=== PATIENT | female | born 1950 | race Caucasian/White ===

== ENCOUNTER 2017-12-17 16:33 | Emergency (ER) | payer OTHER ==
[2017-12-17 16:57] VITALS: BP 135/87; PULSE 72; TEMP 98.6; BMI 20.9
--- NOTE | 2017-12-17 17:12 | PDOC ---
History of Present Illness <Kia Briggs - Last Filed: 12/17/17 17:11> - General History Source: Patient Exam Limitations: No Limitations - History of Present Illness Initial Comments: 12/17/17 18:17 The patient is a 67 year old female with a significant PMH of hypothyroidism who presents to the emergency department with bilateral flank pain that began approximately 1 week ago. The patient states the bilateral flank pain radiates to the inguinal canals. The patient describes the flank pain as slow onset, 10/ 10 pain, stabbing, and intermittent worsened with movement. The patient saw Urgent Care today who reported mild leukocytes on UA and was told to seek further evaluation at the ER. The patient states she has been taking Tylenol and Motrin for the pain over the past week but has not taken anything today. The patient also notes fever, chills and bloating secondary to the flank pain. The patient reports decreased appetite but no urinary complaints. The patient also notes that she has not had a bowel movement for the past three days and states this is not normal for her. The patient denies chest pain, shortness of breath, headache and dizziness. Denies nausea, vomit, and diarrhea. Denies dysuria, frequency, urgency and hematuria. Allergies: NKA Past surgical history: None reported. Social history: No reported alcohol, drug, or cigarette use. PCP: Dr. Nathan <Audra West - Last Filed: 12/17/17 18:17> <Gabriella Yun - Last Filed: 12/17/17 20:52> - General Chief Complaint: Pain Stated Complaint: KIDNEY Time Seen by Provider: 12/17/17 17:11 Past History - Past Medical History COPD: No Thyroid Disease: Yes - Suicide/Smoking/Psychosocial Hx Smoking History: Never smoked Have you smoked in the past 12 months: No Information on smoking cessation initiated: No Hx Alcohol Use: No Drug/Substance Use Hx: No Substance Use Type: None <Kia Briggs - Last Filed: 12/17/17 17:11> <Audra West - Last Filed: 12/17/17 18:17> <Gabriella Yun - Last Filed: 12/17/17 20:52> - Past Medical History Allergies/Adverse Reactions: Allergies Allergy/AdvReac Type Severity Reaction Status Date / Time No Known Allergies Allergy Verified 12/17/17 16:35 Home Medications: Ambulatory Orders Levothyroxine Sodium [Synthroid] 50 mcg PO Q48H 12/17/17 Levothyroxine Sodium [Synthroid] 75 mcg PO Q48H 12/17/17 Review of Systems - Review of Systems Able to Perform ROS?: Yes Comments:: 12/17/17 18:19 GENERAL/CONSTITUTIONAL: (+) Fever. (+) Chills. No weakness. HEAD, EYES, EARS, NOSE AND THROAT: No change in vision. No ear pain or discharge. No sore throat. CARDIOVASCULAR: No chest pain or shortness of breath. RESPIRATORY: No cough, wheezing, or hemoptysis. GASTROINTESTINAL: (+) Bloated. (+) Constipated. No nausea, vomiting, or diarrhea. GENITOURINARY: No dysuria, frequency, or change in urination. MUSCULOSKELETAL: No joint or muscle swelling or pain. No neck or back pain. BACK: (+) Bilateral flank pain. SKIN: No rash NEUROLOGIC: No headache, vertigo, loss of consciousness, or change in strength/ sensation. ENDOCRINE: No increased thirst. No abnormal weight change. HEMATOLOGIC/LYMPHATIC: No anemia, easy bleeding, or history of blood clots. ALLERGIC/IMMUNOLOGIC: No hives or skin allergy. <Audra West - Last Filed: 12/17/17 18:17> *Physical Exam - Vital Signs Last Vital Signs Temp Pulse Resp BP Pulse Ox 98.6 F 72 18 135/87 100 12/17/17 16:37 12/17/17 16:37 12/17/17 16:37 12/17/17 16:37 12/17/17 16:37 <Kia Briggs - Last Filed: 12/17/17 17:11> - Vital Signs Last Vital Signs Temp Pulse Resp BP Pulse Ox 98.6 F 72 18 135/87 100 12/17/17 16:37 12/17/17 16:37 12/17/17 16:37 12/17/17 16:37 12/17/17 16:37 - Physical Exam Comments: 12/17/17 18:22 GENERAL: Awake, alert, and fully oriented, in no acute distress HEAD: No signs of trauma EYES: PERRLA, EOMI, sclera anicteric, conjunctiva clear ENT: Auricles normal inspection, hearing grossly normal, nares patent, oropharynx clear without exudates. Moist mucosa NECK: Normal ROM, supple, no lymphadenopathy, JVD, or masses LUNGS: Breath sounds equal, clear to auscultation bilaterally. No wheezes, and no crackles HEART: Regular rate and rhythm, normal S1 and S2, no murmurs, rubs or gallops ABDOMEN: Soft, nontender, normoactive bowel sounds. No guarding, no rebound. No masses EXTREMITIES: Normal range of motion, no edema. No clubbing or cyanosis. No cords, erythema, or tenderness NEUROLOGICAL: Cranial nerves II through XII grossly intact. Normal speech, normal gait SKIN: Warm, Dry, normal turgor, no rashes or lesions noted. <Audra West - Last Filed: 12/17/17 18:17> - Vital Signs Last Vital Signs Temp Pulse Resp BP Pulse Ox 98.6 F 72 18 135/87 99 12/17/17 16:37 12/17/17 16:37 12/17/17 16:37 12/17/17 16:37 12/17/17 17:45 <Gabriella Yun - Last Filed: 12/17/17 20:52> ED Treatment Course - LABORATORY CBC & Chemistry Diagram: 12/17/17 18:06 12/17/17 18:06 - ADDITIONAL ORDERS Additional order review: Laboratory Results 12/17/17 12/17/17 12/17/17 18:40 18:06 18:06 Sodium 138 Potassium 4.5 Chloride 105 Carbon Dioxide 27 Anion Gap 6 L BUN 15 Creatinine 0.9 Creat Clearance w eGFR > 60 Random Glucose 95 Calcium 8.2 L Total Bilirubin 0.4 AST 16 ALT 19 Alkaline Phosphatase 76 Total Protein 7.0 Albumin 3.2 L Urine Color Straw Cancelled Urine Appearance Clear Cancelled Urine pH 6.0 Cancelled Ur Specific [place] 1.006 Cancelled Urine Protein Negative Cancelled Urine Glucose (UA) Negative Cancelled Urine Ketones Negative Cancelled Urine Blood Negative Cancelled Urine Nitrite Negative Cancelled Urine Bilirubin Negative Cancelled Urine Urobilinogen Negative Cancelled Ur Leukocyte Esterase 3+ H Cancelled Urine WBC (Auto) 16 Urine RBC (Auto) 1 Ur Epithelial Cells Rare Urine Bacteria Few 12/17/17 18:06 RBC 3.81 MCV 95.7 MCHC 33.3 RDW 11.9 MPV 8.2 Neutrophils % 69.6 Lymphocytes % 19.6 Monocytes % 8.0 Eosinophils % 2.4 Basophils % 0.4 <Gabriella Yun - Last Filed: 12/17/17 20:52> Medical Decision Making - Medical Decision Making 12/17/17 20:49 Patient Name: KENNEDY WILLSON THIS IS A PRELIMINARY REPORT FROM [facility] DATE OF SERVICE: 2017-12-17 19:37:03 IMAGES: [id number] EXAM: CT abdomen/pelvis with contrast HISTORY: Back pain with fever, rule out pyelonephritis COMPARISON: None. FINDINGS: There is a mildly prominent extrarenal renal pelvis on the right of questionable clinical significance. There are no renal or ureteral calculi seen. There is no abnormal perinephric stranding or abnormal perinephric fluid collection seen. The gallbladder is partially contracted. There are no obvious gallstones. There is a moderately large amount of stool noted in the colon. There is no evidence of intestinal obstruction. The appendix is normal in size. Urinary bladder is mildly distended at this time. There are no bladder calculi. There is lumbar facet arthropathy. Minimal amorphous increased attenuation is noted in the posterior mediastinum anterior to the T11/T12 disc space of undetermined etiology or significance. If clinically indicated, consider evaluation with thoracic spine MRI. THIS DOCUMENT HAS BEEN ELECTRONICALLY SIGNED 12/17/17 20:51 Pt ws given a copy of her CT. SHe has a UTI; she has constipation. She has cipro that was given to her at urgent care and she picked that up at the pharmacy; She will be given a dose of levaquin in the ER. Stable for discharge. <Gabriella Yun - Last Filed: 12/17/17 20:52> *DC/Admit/Observation/Transfer <Kia Briggs - Last Filed: 12/17/17 17:11> - Attestations Scribe Attestion: 12/17/17 18:22 Documentation prepared by Audra West, acting as medical physiologist for Kia Briggs MD. <Audra West - Last Filed: 12/17/17 18:17> - Discharge Dispostion Admit: No <Gabriella Yun - Last Filed: 12/17/17 20:52> Diagnosis at time of Disposition: Constipation, UTI (urinary tract infection) - Discharge Dispostion Disposition: HOME Condition at time of disposition: Stable - Referrals Referrals: Leslee Nathan [Primary Care Provider] - - Patient Instructions Printed Discharge Instructions: Urinary Tract Infection, Constipation - Post Discharge Activity
[2017-12-17 18:29] LABS: BASO % 0.4 % (0-2.0); EOS % 2.4 % (0-4.5); HEMATOCRIT 36.5 % (32.4-45.2); HEMOGLOBIN 12.1 GM/dL (10.7-15.3); LYMPH % 19.6 % (8-40); MCH 31.8 pg (25.7-33.7); MCHC 33.3 g/dl (32.0-36.0); MEAN CELL VOLUME 95.7 fl (80-96); MEAN PLT VOLUME 8.2 fl (7.5-11.1); NEUT % 69.6 % (42.8-82.8); PLATELET COUNT 227 K/MM3 (134-434); RBC 3.81 M/mm3 (3.60-5.2); RDW 11.9 % (11.6-15.6); WHITE BLOOD COUNT 5.3 K/mm3 (4.0-10.0)
[2017-12-17 18:50] LABS: URINE APPEARANCE CLEAR; URINE BILIRUBIN NEGATIVE (NEGATIVE); URINE BLOOD NEGATIVE (NEGATIVE); URINE COLOR STRAW; URINE GLUCOSE (UA) NEGATIVE (NEGATIVE); URINE KETONE NEGATIVE (NEGATIVE); URINE NITRITE NEGATIVE (NEGATIVE); URINE PROTEIN NEGATIVE (NEGATIVE); URINE UROBILINOGEN NEGATIVE mg/dL (0.2-1.0)
[2017-12-17 18:54] LABS: URINE LEUK ESTERASE 3+ (NEGATIVE)
[2017-12-17 18:55] LABS: EPI CELLS RARE /HPF (FEW); URINE BACTERIA FEW /hpf (NONE SEEN)
[2017-12-17 19:10] LABS: ALBUMIN 3.2 g/dl (3.4-5.0); ANION GAP 6 (8-16); BLOOD UREA NITROGEN 15 mg/dL (7-18); CALCIUM 8.2 mg/dL (8.5-10.1); CHLORIDE 105 mmol/L (98-107); CO2 27 mmol/L (21-32); CREATININE 0.9 mg/dL (0.55-1.02); GLUCOSE,RANDOM 95 mg/dL (74-106); POTASSIUM 4.5 mmol/L (3.5-5.1); SGOT/AST 16 U/L (15-37); SGPT/ALT 19 U/L (12-78); SODIUM 138 mmol/L (136-145)
[2017-12-17 19:11] LABS: ALK PHOS 76 U/L (45-117); BILIRUBIN,TOTAL 0.4 mg/dL (0.2-1.0)
[2017-12-17] MEDS ORDERED: LEVOFLOXACIN 500 MG IVPB 500 MG/100 ML BAG IVPB ONE ×2 (20:15→20:22)
[2017-12-17] MEDS ORDERED: POLYETHYLENE GLYCOL 3350 119 GM BTL PO ONE (20:52)
== END 2017-12-17 21:25 | disposition home or self-care (01) ==
LOC: JER 16:33
DX: N39.0 Urinary tract infection, site not specified (principal); K59.00 Constipation, unspecified; E03.9 Hypothyroidism, unspecified
CPT/HCPCS: 36415; 74176-TC; 80053; 81003; 81015; 85025; 87086; 96365; 99284-25

== ENCOUNTER 2021-10-15 17:49 | Emergency (ER) | payer OTHER ==
[2021-10-15 18:15] VITALS: BP 109/74; PULSE 71; TEMP 98.2; BMI 21.7
[2021-10-15] MEDS ORDERED: LACTATED RINGERS SOLUTION 1000 ML INFUS.BAG IV ONE (20:37)
[2021-10-15] MEDS ORDERED: ACETAMINOPHEN 1000 MG/100 ML VIAL IVPB ONE (20:37)
[2021-10-15 20:51] LABS: BASO % 0.4 % (0-2.0); EOS % 1.5 % (0-4.5); HEMATOCRIT 35.6 % (32.4-45.2); HEMOGLOBIN 12.1 GM/dL (10.7-15.3); LYMPH % 17.6 % (8-40); MCH 32.6 pg (25.7-33.7); MONO % 9.6 % (3.8-10.2); NEUT % 70.9 % (42.8-82.8); PLATELET COUNT 180 10^3/uL (134-434); RDW 12.3 % (11.6-15.6)
[2021-10-15 20:55] LABS: EPI CELLS 2 /uL (0-25.1); HYALINE CASTS 0 /uL (0-3.1); URINE APPEARANCE CLEAR; URINE BACTERIA 6 /uL (0-1359); URINE BILIRUBIN NEGATIVE (NEGATIVE); URINE COLOR YELLOW; URINE GLUCOSE (UA) NEGATIVE (NEGATIVE); URINE KETONE NEGATIVE (NEGATIVE); URINE LEUK ESTERASE 1+ (NEGATIVE); URINE NITRITE NEGATIVE (NEGATIVE); URINE PROTEIN NEGATIVE (NEGATIVE); URINE RBC 6 /uL (0-23.9); URINE UROBILINOGEN 0.2 mg/dL (0.2-1.0); URINE WBC 21 /uL (0-25.8)
[2021-10-15] MEDS ORDERED: ACETAMINOPHEN INJECTION 100 ML IVPB ONE (20:55)
[2021-10-15 21:05] LABS: PROTHROMBIN TIME (PATIENT) 11.7 SEC (9.7-13.0)
[2021-10-15 21:07] LABS: ACTIVATED PTT 28.5 SECONDS (25.2-36.5)
[2021-10-15 21:12] LABS: CALCIUM 8.4 mg/dL (8.5-10.1)
[2021-10-15 21:13] LABS: ALBUMIN 3.4 g/dl (3.4-5.0); BLOOD UREA NITROGEN 15.2 mg/dL (7-18)
[2021-10-15 21:17] LABS: BILIRUBIN,TOTAL 0.5 mg/dL (0.2-1); TOT PROT 6.7 g/dl (6.4-8.2)
[2021-10-16] MEDS ORDERED: DOCUSATE SODIUM 100 MG CAPSULE (FP) PO ONE ×2 (00:03→00:13)
[2021-10-16] MEDS ORDERED: POLYETHYLENE GLYCOL 3350 119 GM BTL PO ONE (00:04)
[2021-10-16] MEDS ORDERED: POLYETHYLENE GLYCOL (HEALTHYLAX) 3350 17 GM PACKET ONE (00:14)
== END 2021-10-16 00:23 | disposition home or self-care (01) ==
LOC: JER 17:49
PROC: 3E0333Z Introduction of Anti-inflammatory into Peripheral Vein, Percutaneous Approach (ICD-10-PCS; principal; 2021-10-15)
DX: R10.84 Generalized abdominal pain (principal); K59.00 Constipation, unspecified
CPT/HCPCS: 36415; 71046-TC-FY; 74177-TC; 80053; 81003; 83690; 85025; 85610; 85730; 87086; 93005; 93010; 96374; 99285-25; J0131; Q9967